=== PATIENT | female | born 1990 ===

== ENCOUNTER 2020-02-07 10:15 | Emergency (ER) | payer SELFPAY ==
[2020-02-07 11:08] VITALS: BP 97/56
--- NOTE | 2020-02-07 11:39 | Event Note ---
ED Screening Note Date of service: 02/07/20 Time: 11:38 ED Screening Note: 29-year-old female presents to the emergency room complaining of epigastric pain that radiates to her back for 3 days. Patient admits to nausea and vomiting. Denies any fever or chills. This initial assessment/diagnostic orders/clinical plan/treatment(s) is/are subject to change based on patients health status, clinical progression and re- assessment by fellow clinical providers in the ED. Further treatment and workup at subsequent clinical providers discretion. Patient/guardian urged not to elope from the ED as their condition may be serious if not clinically assessed and managed. Initial orders include:
[2020-02-07 12:10] LABS: Bacteria,Urine 3+ /HPF (Negative); Bilirubin,Urine NEG (Negative); Blood,Urine NEG (Negative); Color,Urine Yellow (Yellow); Mucus,Urine 2+ /HPF; Protein,Urine <15 mg/dL mg/dL (Negative)
[2020-02-07] MEDS ORDERED: SODIUM CHLORIDE 0.9% 1000 ML 1,000 ML IV ONE (12:51)
[2020-02-07] MEDS ORDERED: FAMOTIDINE 20 MG/2 ML INJ IV ONE (12:52)
[2020-02-07] MEDS ORDERED: ONDANSETRON 4 MG/2 ML INJ IV ONE (12:52)
[2020-02-07] MEDS ORDERED: HYDROcodone/ACETAMINOPHEN 5-325 MG TAB PO ONE (12:54)
--- NOTE | 2020-02-07 12:57 | Emergency Department Report ---
ED Abdominal Pain HPI - General Chief Complaint: Abdominal Pain Stated Complaint: STOMACH PAIN Source: patient Mode of arrival: Ambulatory Limitations: No Limitations - History of Present Illness Initial Comments: This is a 29-year-old female complaining of abdominal pain in the epigastric region radiating to her back. The pain is usually relieved with vomiting patient states that she vomited today and the pain did not go away. the symptoms have been on going for 3 days. she does have a history of gastritis she usually takes omeprazole but patient states that it is not working and now whenever she takes omeprazole she starts itching. She denies any urinary frequency or dysuria her last menstrual period was 01/31/2020. She has a at home born on 10/01/2017 she denies any other medical problems. She denies fever she denies cough chest pain or shortness of breath MD Complaint: abdominal pain -: days(s) Location: epigastric Radiation: R flank Migration to: no migration Severity: moderate Severity scale (0 -10): 6 Quality: sharp Consistency: constant Worsens With: eating Associated Symptoms: nausea, vomiting. denies: diarrhea, constipation, dysuria - Related Data LMP Date: 01/31/20 Previous Rx's Medication Instructions Recorded Last Taken Type Acetaminophen with Codeine 1 each PO Q6HR PRN #15 tablet 02/07/20 Unknown Rx [Acetaminophen-Codeine #2 TAB] Allergies Allergy/AdvReac Type Severity Reaction Status Date / Time No Known Allergies Allergy Unverified 02/07/20 10:39 ED Review of Systems ROS: Stated complaint: STOMACH PAIN Other details as noted in HPI Comment: All other systems reviewed and negative Constitutional: denies: chills, fever, malaise Eyes: denies: eye pain, eye discharge ENT: denies: ear pain, hearing loss Respiratory: no symptoms reported Cardiovascular: denies: chest pain, palpitations, dyspnea on exertion Endocrine: no symptoms reported Gastrointestinal: abdominal pain, nausea, vomiting. denies: diarrhea, constipation, hematemesis, melena Genitourinary: denies: urgency, dysuria Skin: denies: rash, lesions Neurological: denies: headache, numbness, paresthesias Psychiatric: denies: anxiety, depression, auditory hallucinations, visual hallucinations ED Past Medical Hx - Past Medical History Previous Medical History?: Yes Additional medical history: epigastic pain, Childbirth x 4 - Surgical History Past Surgical History?: No - Social History Smoking Status: Never Smoker Substance Use Type: None - Medications Home Medications: Home Medications Medication Instructions Recorded Confirmed Last Taken Type Acetaminophen with Codeine 1 each PO Q6HR PRN #15 tablet 02/07/20 Unknown Rx [Acetaminophen-Codeine #2 TAB] ED Physical Exam - General Limitations: No Limitations General appearance: alert, in no apparent distress - Head Head exam: Present: atraumatic - Eye Eye exam: Present: normal appearance. Absent: scleral icterus - ENT ENT exam: Present: normal exam - Neck Neck exam: Present: normal inspection - Respiratory Respiratory exam: Present: normal lung sounds bilaterally - Cardiovascular Cardiovascular Exam: Present: regular rate, normal heart sounds - GI/Abdominal GI/Abdominal exam: Present: soft, tenderness (And epigastric region) - Extremities Exam Extremities exam: Present: normal inspection, normal capillary refill - Back Exam Back exam: Present: normal inspection, full ROM. Absent: CVA tenderness (R), CVA tenderness (L) - Neurological Exam Neurological exam: Present: alert, oriented X3 - Psychiatric Psychiatric exam: Present: normal affect - Skin Skin exam: Present: warm, dry, intact, normal color ED Course Vital Signs 02/07/20 11:06 Temperature 98 F Pulse Rate 59 L Respiratory 20 Rate Blood Pressure 97/56 O2 Sat by Pulse 100 Oximetry - Reevaluation(s) Reevaluation #1: 02/07/20 16:20 Patient in no apparent distress awaiting CAT scan results Reevaluation #2: 02/07/20 17:20 I discussed all findings with Dr. Carl . plan is to contact GI. Patient resting in no acute distress 02/07/20 18:21 ED Medical Decision Making - Lab Data Result diagrams: 02/07/20 12:16 02/07/20 12:16 - Radiology Data Radiology results: report reviewed CT of abdomen IMPRESSION: 1. Moderately distended gallbladder with significant dilatation of the extrahepatic common bile duct and possibly mild intrahepatic biliary ductal dilatation. No cholelithiasis or definite obstructing lesion. Consider further evaluation with ultrasound and/or ERCP or MRCP. ULTRASOUND ABDOMEN, COMPLETE INDICATION / CLINICAL INFORMATION: EPIGASTRIC PAIN. COMPARISON: None available. FINDINGS: PANCREAS: No significant abnormality. ABDOMINAL AORTA: No significant abnormality. IVC: No significant abnormality. LIVER: No significant abnormality. GALLBLADDER: 2 cm echogenic gallstone in the gallbladder. No pericholecystic fluid, gallbladder wall thickening, or sonographic Garcia's sign. BILE DUCTS: No significant abnormality. Common bile duct measures 9 mm. KIDNEYS: Right: Mild prominence of the right renal pelvis. Left: Mild prominence of the left renal pelvis. SPLEEN: No significant abnormality. FREE FLUID: None. ADDITIONAL FINDINGS: None. IMPRESSION: 1. Cholelithiasis with moderate dilatation of the extrahepatic common bile duct. Consider further evaluation with ERCP or MRCP. No evidence of acute cholecystitis. 2. Mild prominence of the bilateral renal pelves. Findings likely represent bilateral extrarenal pelves.. - Medical Decision Making CT of abdomen and pelvis This is a 29-year-old Central [place]-speaking female with a 3-day complaint of epigastric pain radiating to her back. Ultrasound of her gallbladder reveals Cholelithiasis with moderate dilatation common bile duct. AST is 468 ALT is 430 ALK 422. She has a WBC that is 4.2. Negative negative urinalysis. Findings discussed both with Dr. Carl ER attending and with GI doctor on-call he recommends a MRCP IV antibiotic, INR, IV hydration . Patient states she cannot stay because she has to go home and take care of her children the youngest being 4-month old I explained everything to the patient the patient and the need for follow-up with GI and further evaluation because of her gallstones and possible blockage of her bile duct she states she cannot stay and has to go home. Patient notified that she could have worsening pain infection that could worsen to serious medical conditions and even warrant emergency surgical intervention. Dr. Carl is aware the patient is signing out AMA . my discussion discussion with patient was via the implementation director ID [id number] - Differential Diagnosis Cholelithiasis Critical Care Time: No Critical care attestation.: If time is entered above; I have spent that time in minutes in the direct care of this critically ill patient, excluding procedure time. ED Disposition Clinical Impression: Cholelithiasis Qualifiers: Cholelithiasis location: gallbladder Cholecystitis presence: without cholecystitis Biliary obstruction: without biliary obstruction Qualified Code(s): K80.20 - Calculus of gallbladder without cholecystitis without obstruction Disposition: LEFT AGAINST MED ADVICE Is pt being admited?: No Does the pt Need Aspirin: No Condition: Stable Instructions: Abdominal Pain (ED) Additional Instructions: Your condition requires further follow-up with a title curative specialist for worsening pain vomiting yellowing of your eyes please return to the emergency room immediately Prescriptions: Acetaminophen with Codeine [Acetaminophen-Codeine #2 TAB] 1 each PO Q6HR PRN #15 tablet PRN Reason: Pain Referrals: PRIMARY CAREMD [Primary Care Provider] - 3-5 Days SHERRY PENA MD [Staff Physician] - 3-5 Days Forms: AMA Form Time of Disposition: 20:04
[2020-02-07 13:06] LABS: Basophils % (Auto) 0.8 % (0.0-1.8); Eosinophils % (Auto) 0.2 % (0.0-4.3); Hematocrit 36.8 % (30.3-42.9); Hemoglobin 12.3 gm/dl (10.1-14.3); Lymphocytes # (Auto) 0.8 K/mm3 (1.2-5.4); Lymphocytes % (Auto) 19.2 % (13.4-35.0); Mean Corpuscular HGB Conc 34 % (30-34); Mean Corpuscular Volume 90 fl (79-97); Monocytes # (Auto) 0.2 K/mm3 (0.0-0.8); Monocytes % (Auto) 5.5 % (0.0-7.3); Platelet Count 284 K/mm3 (140-440); Red Blood Count 4.11 M/mm3 (3.65-5.03)
[2020-02-07 13:30] LABS: Alanine Aminotransferase 430 units/L (7-56); Albumin 4.5 g/dL (3.9-5); BUN/Creatinine Ratio 20; Blood Urea Nitrogen 8 mg/dL (7-17); Calcium 9.6 mg/dL (8.4-10.2); Hemolysis Index 2
--- NOTE | 2020-02-07 14:45 | Cat Scan Report ---
CT ABDOMEN AND PELVIS WITHOUT CONTRAST INDICATION / CLINICAL INFORMATION: MAIN. TECHNIQUE: Axial CT images were obtained through the abdomen and pelvis without IV contrast. All CT scans at [facility] location are performed using CT dose reduction for ALARA by means of automated exposure control. COMPARISON: None available. FINDINGS: LOWER CHEST: No significant abnormality. HEPATOBILIARY: No significant hepatic abnormality. Moderately distended gallbladder with dilatation o f the extrahepatic common bile duct measuring up to 1.2 cm. Possibly mild intrahepatic biliary ductal dilatation. No definite obstructing lesion. No cholelithiasis. PANCREAS/SPLEEN/ADRENALS: No significant abnormality. GENITOURINARY: Few bilateral punctate densities consistent with nonobstructive nephrolithiasis. Findi ngs measure on the order of 1-3 mm. No obstructive uropathy. Ureters and bladder demonstrate no signi ficant abnormality. GASTROINTESTINAL/MESENTERY: No evidence of acute appendicitis. No bowel obstruction or inflammation n o free air or significant free fluid. RETROPERITONEUM: No significant adenopathy. REPRODUCTIVE ORGANS: No significant abnormality. VASCULAR: No significant abnormality. BODY WALL: No significant abnormality. SKELETAL SYSTEM: No significant abnormality. IMPRESSION: 1. Moderately distended gallbladder with significant dilatation of the extrahepatic common bile duct and possibly mild intrahepatic biliary ductal dilatation. No cholelithiasis or definite obstructing l esion. Consider further evaluation with ultrasound and/or ERCP or MRCP. Signer Name: Rory Harding MD Signed: 02/07/2020 2:40 PM Workstation Name: [id number]
--- NOTE | 2020-02-07 16:56 | Ultrasound Report ---
ULTRASOUND ABDOMEN, COMPLETE INDICATION / CLINICAL INFORMATION: EPIGASTRIC PAIN. COMPARISON: None available. FINDINGS: PANCREAS: No significant abnormality. ABDOMINAL AORTA: No significant abnormality. IVC: No significant abnormality. LIVER: No significant abnormality. GALLBLADDER: 2 cm echogenic gallstone in the gallbladder. No pericholecystic fluid, gallbladder wall thickening, or sonographic Garcia's sign. BILE DUCTS: No significant abnormality. Common bile duct measures 9 mm. KIDNEYS: Right: Mild prominence of the right renal pelvis. Left: Mild prominence of the left renal p evert. SPLEEN: No significant abnormality. FREE FLUID: None. ADDITIONAL FINDINGS: None. IMPRESSION: 1. Cholelithiasis with moderate dilatation of the extrahepatic common bile duct. Consider further florence luation with ERCP or MRCP. No evidence of acute cholecystitis. 2. Mild prominence of the bilateral renal pelves. Findings likely represent bilateral extrarenal pelv es.. Signer Name: Rory Harding MD Signed: 02/07/2020 4:52 PM Workstation Name: [id number]
[2020-02-07] MEDS ORDERED: PIPERACIL/TAZOBACTA 4.5/NS 100 4.5 GM/100 ML VIAL IV ONE (17:47)
[2020-02-07] MEDS ORDERED: D5W/0.45% NACL 1,000 ML IV SCH (18:00)
[2020-02-07 18:36] LABS: INR 0.96 (0.87-1.13)
== END 2020-02-07 20:19 | disposition left against medical advice (07) ==
LOC: ED 10:15
DX: K80.20 Calculus of gallbladder without cholecystitis without obstruction (principal); Z98.890 Other specified postprocedural states; Z79.899 Other long term (current) drug therapy
CPT/HCPCS: 36415; 74176; 76700; 80053; 81001; 83690; 84702; 85025; 85610; 96361; 96365; 96375; 99284; J2405; J2543; J7030

== ENCOUNTER 2020-02-14 02:08 | Observation (INO) | payer OTHER ==
[2020-02-14 04:27] LABS: Basophils % (Auto) 0.8 % (0.0-1.8); Eosinophils % (Auto) 0.6 % (0.0-4.3); Hematocrit 38.8 % (30.3-42.9); Hemoglobin 13.3 gm/dl (10.1-14.3); Lymphocytes # (Auto) 1.5 K/mm3 (1.2-5.4); Lymphocytes % (Auto) 30.5 % (13.4-35.0); Mean Corpuscular HGB Conc 34 % (30-34); Mean Corpuscular Volume 89 fl (79-97); Monocytes # (Auto) 0.4 K/mm3 (0.0-0.8); Monocytes % (Auto) 7.8 % (0.0-7.3); Platelet Count 257 K/mm3 (140-440); Red Blood Count 4.34 M/mm3 (3.65-5.03)
[2020-02-14 04:28] LABS: Alanine Aminotransferase 401 units/L (7-56); Albumin 4.6 g/dL (3.9-5); Blood Urea Nitrogen 13 mg/dL (7-17); Calcium 10.3 mg/dL (8.4-10.2); Hemolysis Index 3
[2020-02-14 04:32] LABS: BUN/Creatinine Ratio 33
--- NOTE | 2020-02-14 05:16 | Ultrasound Report ---
LIMITED RUQ ABDOMINAL ULTRASOUND INDICATION: RUQ pain, n/v. COMPARISON: Abdominal ultrasound from 02/07/2020. FINDINGS: Pancreas: Visualized portions show no significant abnormality. Abdominal Aorta: Normal size. IVC: No significant abnormality. Liver: The liver measures 14.4 cm in length. No significant abnormality. Normal hepatopedal blood fl ow in the main portal vein. Gallbladder: No significant abnormality. Bile ducts: No significant abnormality. Common bile duct measures 2 mm. Right kidney: Not demonstrated on this exam. Free fluid: None. Additional Findings: None. IMPRESSION: 1. No acute abnormality. 2. Right kidney not demonstrated on this exam. Signer Name: Jovani Romo MD Signed: 02/14/2020 5:12 AM Workstation Name: [id number]
[2020-02-14] MEDS ORDERED: MORPHINE 4 MG/1 ML INJ IV ONE (05:51)
[2020-02-14] MEDS ORDERED: ONDANSETRON 4 MG/2 ML INJ IV ONE (05:51)
[2020-02-14] MEDS ORDERED: SODIUM CHLORIDE 0.9% 1000 ML 1,000 ML IV ONE (05:51)
--- NOTE | 2020-02-14 06:21 | Emergency Department Report ---
<HARRISCORETTA BACON - Last Filed: 02/14/20 09:28> ED Abdominal Pain HPI - General Chief Complaint: Abdominal Pain Stated Complaint: STOMACH PAIN Time Seen by Provider: 02/14/20 05:41 - Related Data Previous Rx's Medication Instructions Recorded Last Taken Type Acetaminophen with Codeine 1 each PO Q6HR PRN #15 tablet 02/07/20 Unknown Rx [Acetaminophen-Codeine #2 TAB] Allergies Allergy/AdvReac Type Severity Reaction Status Date / Time No Known Allergies Allergy Unverified 02/07/20 10:39 ED Past Medical Hx - Medications Home Medications: Home Medications Medication Instructions Recorded Confirmed Last Taken Type Acetaminophen with Codeine 1 each PO Q6HR PRN #15 tablet 02/07/20 Unknown Rx [Acetaminophen-Codeine #2 TAB] ED Medical Decision Making - Lab Data Result diagrams: 02/14/20 03:13 02/14/20 03:13 - Medical Decision Making CT of the abdomen completed still shows biliary ductal dilatation with no biliary stones. Patient's alkaline phosphatase is up to 380 ALT 401 alkaline phos 533 and total Bili 1.30. I spoke with risk assessment consultant partition setter Dr. Cecy Rocha [facility]. Dr. Finley will be on consult patient admitted with biliary obstruction hospitalist called and notified Dr. Marcelo will see patient Critical Care Time: No ED Disposition Clinical Impression: Biliary obstruction Disposition: OP ADMIT IP TO THIS HOSP Is pt being admited?: No Does the pt Need Aspirin: No Condition: Stable Time of Disposition: 09:36 <JUAN F HOLCOMB - Last Filed: 02/17/20 01:35> ED Abdominal Pain HPI - General Source: patient Mode of arrival: Ambulatory Limitations: Language Barrier - History of Present Illness Initial Comments: Dr Clark, ER attending used for grenadian interpretation Patient is a 29-year-old female presents emergency room as of epigastric and right upper quadrant abdominal pain that began last night. She has associated nausea and one episode of vomiting. She denies any diarrhea, fever, urinary symptoms, chest pain, shortness of breath. She was evaluated in the emergency department a week ago for similar symptoms and was found to have elevated LFTs at that time, there was concern for choledocholithiasis and admission was recommended with GI consultation, patient signed out AMA due to family reasons. She states that despite prescription she was given she continues to have pain. She denies any past medical history. No allergies to medications. Past abdominal surgical history . ED Review of Systems ROS: Stated complaint: STOMACH PAIN Other details as noted in HPI Comment: All other systems reviewed and negative ED Past Medical Hx - Past Medical History Previous Medical History?: Yes Additional medical history: epigastic pain. GALLSTONES - Surgical History Past Surgical History?: Yes Additional Surgical History: X 4 - Social History Smoking Status: Never Smoker Substance Use Type: None ED Physical Exam - General Limitations: No Limitations General appearance: alert, in no apparent distress - Head Head exam: Present: atraumatic, normocephalic - Eye Eye exam: Present: normal appearance - ENT ENT exam: Present: mucous membranes moist - Respiratory Respiratory exam: Present: normal lung sounds bilaterally. Absent: respiratory distress, wheezes, rales, rhonchi, stridor, chest wall tenderness, accessory muscle use, decreased breath sounds, prolonged expiratory - Cardiovascular Cardiovascular Exam: Present: regular rate, normal rhythm, normal heart sounds. Absent: systolic murmur, diastolic murmur, rubs, gallop - GI/Abdominal GI/Abdominal exam: Present: soft, tenderness (epigastric, RUQ), normal bowel sounds. Absent: distended, guarding, rebound, rigid - Neurological Exam Neurological exam: Present: alert, oriented X3 - Psychiatric Psychiatric exam: Present: normal affect, normal mood - Skin Skin exam: Present: warm, dry, intact ED Course Vital Signs 02/14/20 02/14/20 02/14/20 02:45 09:19 09:22 Temperature 97.9 F 97.7 F Pulse Rate 71 75 Respiratory 20 16 16 Rate Blood Pressure 101/60 Blood Pressure 105/41 [Right] O2 Sat by Pulse 99 99 99 Oximetry 02/14/20 12:19 Temperature 97.9 F Pulse Rate 60 Respiratory 16 Rate Blood Pressure Blood Pressure 100/55 [Right] O2 Sat by Pulse 99 Oximetry ED Medical Decision Making - Lab Data Result diagrams: 02/15/20 16:32 02/16/20 06:28 - Radiology Data Radiology results: report reviewed LIMITED RUQ ABDOMINAL ULTRASOUND INDICATION: RUQ pain, n/v. COMPARISON: Abdominal ultrasound from 02/07/2020. FINDINGS: Pancreas: Visualized portions show no significant abnormality. Abdominal Aorta: Normal size. IVC: No significant abnormality. Liver: The liver measures 14.4 cm in length. No significant abnormality. Normal hepatopedal blood flow in the main portal vein. Gallbladder: No significant abnormality. Bile ducts: No significant abnormality. Common bile duct measures 2 mm. Right kidney: Not demonstrated on this exam. Free fluid: None. Additional Findings: None. IMPRESSION: 1. No acute abnormality. 2. Right kidney not demonstrated on this exam. Signer Name: Jovani Romo MD Signed: 02/14/2020 4:12 AM Workstation Name: [id number] Ordering Physician: AGATA VICTOR Date of Service: 02/14/20 Procedure(s): CT abdomen pelvis w con Accession Number(s): [id number] cc: AGATA VICTOR CT ABDOMEN AND PELVIS WITH CONTRAST HISTORY: MAIN. Acute mid abdominal pain for the past 2 days with elevated LFTs COMPARISON: Abdominal ultrasound from today and CT abdomen from 02/07/2020 TECHNIQUE: CT images of the abdomen and pelvis were obtained following administration of intravenous contrast. All CT scans at this location are performed using CT dose reduction for ALARA by means of automated exposure control. CONTRAST: 100 ml of intravenous contrast administered. FINDINGS: Lungs/bones: Lung bases are clear. No acute osseous abnormality or significant degenerative change. Abdomen/pelvis: The gallbladder remains mildly distended and there is persistent mild intrahepatic and extrahepatic biliary duct dilatation with no obvious biliary stone disease or pancreatic head mass. There is no pancreatic ductal dilatation and the pancreas itself appears unremarkable. The liver also otherwise appears unremarkable. The spleen, adrenals, and kidneys appear unremarkable. There is a small hiatal hernia. The proximal GI tract is otherwise unremarkable. Urinary bladder and reproductive organs are unremarkable with small ovarian follicles and trace pelvic free fluid which is most likely physiologic in a woman of this age. No acute colonic abnorma lity identified. The appendix is normal. IMPRESSION: 1. Biliary ductal dilatation again noted as was described on the previous CT and once again MRCP is recommended for follow-up since no obvious stone disease or mass is identified. Signer Name: Jovani Romo MD Signed: 02/14/2020 7:57 AM Workstation Name: [id number] Transcribed By: ATILIO Dictated By: Jovani Romo MD Electronically Authenticated By: Jovani Romo MD Signed Date/Time: 02/14/20 0757 DD/ 0755 TD/TT: - Medical Decision Making Dr Clark, ER attending used for grenadian interpretation Patient is a 29-year-old female presents emergency room as of epigastric and right upper quadrant abdominal pain that began last night. She has associated nausea and one episode of vomiting. She denies any diarrhea, fever, urinary symptoms, chest pain, shortness of breath. She was evaluated in the emergency department a week ago for similar symptoms and was found to have elevated LFTs at that time, there was concern for choledocholithiasis and admission was recommended with GI consultation, patient signed out AMA due to family reasons. She states that despite prescription she was given she continues to have pain. She denies any past medical history. No allergies to medications. Past abdominal surgical history . vitals are normal. on exam: epigastric and RUQ ttp, no guarding, no rebound, no rigidity, normal bowel sounds, no peritoneal signs. Labs significant for elevated ALT, AST, alk phos, bilirubin. abdominal US: 1. No acute abnormality.2. Right kidney not demonstrated on this exam. pt signed out to coretta cleaning NP pending CT abd pelvis with IV contrast Critical care attestation.: If time is entered above; I have spent that time in minutes in the direct care of this critically ill patient, excluding procedure time.
[2020-02-14 06:50] LABS: Amorphous Crystals,Urine Few; Bacteria,Urine 4+ /HPF (Negative); Bilirubin,Urine NEG (Negative); Blood,Urine NEG (Negative); Color,Urine Yellow (Yellow); Mucus,Urine 1+ /HPF; Protein,Urine <15 mg/dL mg/dL (Negative)
--- NOTE | 2020-02-14 08:02 | Cat Scan Report ---
CT ABDOMEN AND PELVIS WITH CONTRAST HISTORY: MAIN. Acute mid abdominal pain for the past 2 days with elevated LFTs COMPARISON: Abdominal ultrasound from today and CT abdomen from 02/07/2020 TECHNIQUE: CT images of the abdomen and pelvis were obtained following administration of intravenous contrast. All CT scans at this location are performed using CT dose reduction for ALARA by means of automated exposure control. CONTRAST: 100 ml of intravenous contrast administered. FINDINGS: Lungs/bones: Lung bases are clear. No acute osseous abnormality or significant degenerative change. Abdomen/pelvis: The gallbladder remains mildly distended and there is persistent mild intrahepatic a nd extrahepatic biliary duct dilatation with no obvious biliary stone disease or pancreatic head mass . There is no pancreatic ductal dilatation and the pancreas itself appears unremarkable. The liver al so otherwise appears unremarkable. The spleen, adrenals, and kidneys appear unremarkable. There is a small hiatal hernia. The proximal G I tract is otherwise unremarkable. Urinary bladder and reproductive organs are unremarkable with small ovarian follicles and trace pelvi c free fluid which is most likely physiologic in a woman of this age. No acute colonic abnormality id entified. The appendix is normal. IMPRESSION: 1. Biliary ductal dilatation again noted as was described on the previous CT and once again MRCP is r ecommended for follow-up since no obvious stone disease or mass is identified. Signer Name: Jovani Romo MD Signed: 02/14/2020 7:57 AM Workstation Name: [id number]
[2020-02-14] MEDS ORDERED: ACETAMINOPHEN 325 MG TAB PO PRN (10:59)
--- NOTE | 2020-02-14 10:59 | History and Physical Report ---
History of Present Illness Date of examination: 02/14/20 Date of admission: 02/14/2020 Chief complaint: abd pain History of present illness: Patient 29 years old without any significant past medical history. Presents with right upper quadrant pain. Patient states pain is nonradiating in the upper right quadrant. Has been associated with nausea. Patient relates pain is worse when she eats. Is been going on for several months. Patient went to the ED 1 week ago but required to leave AMA despite suggestions to stay in the hospital. Patient at present appears calm no abdominal pain at this time. Pain is controlled with supportive care fluids and IV pain medications. Patient denied any fever chills no Covid contacts. No previous surgeries. No diarrhea no constipation. No excessive gas. Patient also denies any strong family history of liver disease. Denies any high risk contact behavior Past History Past Medical History: denies: acute [place], atrial fib, arrhythmia, COPD, dialysis, hepatitis, hypertension, hypothyroidism, migraines, pulmonary embolism, stroke Past Surgical History: No surgical history Social history: no significant social history, single, lives with family, full code Family history: no significant family history Medications and Allergies Allergies Allergy/AdvReac Type Severity Reaction Status Date / Time No Known Allergies Allergy Unverified 02/07/20 10:39 Home Medications Medication Instructions Recorded Confirmed Last Taken Type Acetaminophen with Codeine 1 each PO Q6HR PRN #15 tablet 02/07/20 Unknown Rx [Acetaminophen-Codeine #2 TAB] Review of Systems Constitutional: anorexia, fatigue, poor appetite, no weight loss, no weight gain, no fever, no chills, no sweats, no weakness, no malaise, no chronic headaches, no chronic pain Ears, nose, mouth and throat: no ear discharge, no tinnitis, no nasal congestion, no headache, no neck fullness/pressure Cardiovascular: no chest pain, no rapid/irregular heart beat, no lightheadedness, no decreased exercise tolerance Respiratory: no hemoptysis, no dyspnea on exertion, no pleurisy, no respiratory infections, no home oxygen Gastrointestinal: abdominal pain, nausea, loss of appetite, no vomiting, no diarrhea, no constipation, no change in bowel habits, no hematemesis, no coffee ground emesis, no BRBPR, no hematochezia, no early satiety, no heartburn, no indigestion, no excessive gas, no dyspepsia/bloating, no early satiety Genitourinary Female: no menorrhagia, no urinary frequency, no hematuria, no vaginal itching Musculoskeletal: no neck stiffness, no low back pain, no muscle cramps, no myalgias Integumentary: no wounds, no color changes Neurological: no vertigo, no change in mentation, no memory loss, no balance difficulties, no gait dysfunction Psychiatric: no insomnia, no depression Endocrine: no polyphagia, no flushing, no weight change, no proptosis Hematologic/Lymphatic: no easy bruising Allergic/Immunologic: no urticaria, no allergic rhinitis, no anaphylaxis, no gluten intolerance, no seasonal allergies Exam - Constitutional Vitals: Temp Pulse Resp BP Pulse Ox 97.7 F 75 16 105/41 99 02/14/20 09:22 02/14/20 09:22 02/14/20 09:22 02/14/20 09:22 02/14/20 09:22 General appearance: Present: no acute distress, well-nourished - EENT Eyes: Present: PERRL ENT: hearing intact, clear oral mucosa - Neck Neck: Present: supple, normal ROM - Respiratory Respiratory effort: normal Respiratory: bilateral: CTA - Cardiovascular Heart Sounds: Present: S1 & S2. Absent: rub, click - Extremities Extremities: pulses symmetrical, No edema Peripheral Pulses: within normal limits - Abdominal General gastrointestinal: Present: soft, non-tender, non-distended, normal bowel sounds Female genitourinary: Present: normal - Integumentary Integumentary: Present: clear, warm, dry - Musculoskeletal Musculoskeletal: gait normal, strength equal bilaterally - Psychiatric Psychiatric: appropriate mood/affect, intact judgment & insight - Neurologic Neurologic: CNII-XII intact, moves all extremities Results - Labs CBC & Chem 7: 02/14/20 03:13 02/14/20 03:13 Labs: Laboratory Last Values WBC 4.8 K/mm3 (4.5-11.0) 02/14/20 03:13 RBC 4.34 M/mm3 (3.65-5.03) 02/14/20 03:13 Hgb 13.3 gm/dl (10.1-14.3) 02/14/20 03:13 Hct 38.8 % (30.3-42.9) 02/14/20 03:13 MCV 89 fl (79-97) 02/14/20 03:13 MCH 31 pg (28-32) 02/14/20 03:13 MCHC 34 % (30-34) 02/14/20 03:13 RDW 14.0 % (13.2-15.2) 02/14/20 03:13 Plt Count 257 K/mm3 (140-440) 02/14/20 03:13 Lymph % (Auto) 30.5 % (13.4-35.0) 02/14/20 03:13 [place] % (Auto) 7.8 % (0.0-7.3) H 02/14/20 03:13 Eos % (Auto) 0.6 % (0.0-4.3) 02/14/20 03:13 Baso % (Auto) 0.8 % (0.0-1.8) 02/14/20 03:13 Lymph # (Auto) 1.5 K/mm3 (1.2-5.4) 02/14/20 03:13 [place] # (Auto) 0.4 K/mm3 (0.0-0.8) 02/14/20 03:13 Eos # (Auto) 0.0 K/mm3 (0.0-0.4) 02/14/20 03:13 Baso # (Auto) 0.0 K/mm3 (0.0-0.1) 02/14/20 03:13 Seg Neutrophils % 60.3 % (40.0-70.0) 02/14/20 03:13 Seg Neutrophils # 2.9 K/mm3 (1.8-7.7) 02/14/20 03:13 Sodium 135 mmol/L (137-145) L 02/14/20 03:13 Potassium 3.7 mmol/L (3.6-5.0) 02/14/20 03:13 Chloride 95.3 mmol/L (98-107) L 02/14/20 03:13 Carbon Dioxide 26 mmol/L (22-30) 02/14/20 03:13 Anion Gap 17 mmol/L 02/14/20 03:13 BUN 13 mg/dL (7-17) 02/14/20 03:13 Creatinine 0.4 mg/dL (0.6-1.2) L 02/14/20 03:13 Estimated GFR > 60 ml/min 02/14/20 03:13 BUN/Creatinine Ratio 33 % 02/14/20 03:13 Glucose 113 mg/dL (65-100) H 02/14/20 03:13 Calcium 10.3 mg/dL (8.4-10.2) H 02/14/20 03:13 Total Bilirubin 1.30 mg/dL (0.1-1.2) H 02/14/20 03:13 AST 380 units/L (5-40) H 02/14/20 03:13 ALT 401 units/L (7-56) H 02/14/20 03:13 Alkaline Phosphatase 533 units/L (35-129) H 02/14/20 03:13 Total Protein 8.1 g/dL (6.3-8.2) 02/14/20 03:13 Albumin 4.6 g/dL (3.9-5) 02/14/20 03:13 Albumin/Globulin Ratio 1.3 % 02/14/20 03:13 Lipase 30 units/L (13-60) 02/14/20 03:13 HCG, Qual Negative (Negative) 02/14/20 03:13 Urine Color Yellow (Yellow) 02/14/20 04:10 Urine Turbidity Clear (Clear) 02/14/20 04:10 Urine pH 7.0 (5.0-7.0) 02/14/20 04:10 Ur Specific [place] 1.020 (1.003-1.030) 02/14/20 04:10 Urine Protein <15 mg/dl mg/dL (Negative) 02/14/20 04:10 Urine Glucose (UA) Neg mg/dL (Negative) 02/14/20 04:10 Urine Ketones Neg mg/dL (Negative) 02/14/20 04:10 Urine Blood Neg (Negative) 02/14/20 04:10 Urine Nitrite Neg (Negative) 02/14/20 04:10 Urine Bilirubin Neg (Negative) 02/14/20 04:10 Urine Urobilinogen 4.0 mg/dL (<2.0) 02/14/20 04:10 Ur Leukocyte Esterase Neg (Negative) 02/14/20 04:10 Urine WBC (Auto) 3.0 /HPF (0.0-6.0) 02/14/20 04:10 Urine RBC (Auto) 4.0 /HPF (0.0-6.0) 02/14/20 04:10 U Epithel Cells (Auto) 1.0 /HPF (0-13.0) 02/14/20 04:10 Urine Bacteria (Auto) 4+ /HPF (Negative) 02/14/20 04:10 Amorphous Crystals Few 02/14/20 04:10 Urine Mucus 1+ /HPF 02/14/20 04:10 - Imaging and Cardiology CT scan - pelvis: report reviewed, image reviewed US - abdomen: report reviewed, image reviewed [place]/IV: IV Catheter Type [Left Distal INT / [place] Antecubital] Assessment and Plan Advance Directives: Yes Plan of care discussed with patient/family: Yes - Patient Problems (1) Biliary obstruction Current Visit: Yes Status: Acute Plan to address problem: CT scan showed biliary ductal dilatation without stones. Alk phos was 533 and associated elevated transaminases. Will require hepatitis work-up also ERCP for possible retained stone. GI consult Continue supportive care n.p.o. for now. IV fluid hydration pain control. (2) Cholelithiasis Current Visit: No Status: Acute Qualifiers: Cholelithiasis location: gallbladder Cholecystitis presence: without cholecystitis Biliary obstruction: without biliary obstruction Qualified Code(s): K80.20 - Calculus of gallbladder without cholecystitis without obstruction Plan to address problem: At present no evidence of stones. Will need to evaluate for retained stones ERCP versus MRI.
[2020-02-14] MEDS: ENOXAPARIN 40 MG/0.4 ML INJ SUB-Q SCH (12:46)
--- NOTE | 2020-02-14 18:22 | Gastroenterology Consultation ---
History of Present Illness - Reason for Consult Consult date: 02/14/20 Abnormal Biliary Tract Requesting physician: TASHI ASHRAF - History of Present Illness The patient is a 29 yo female admitted twice to the ER in the past 7 days for RUQ pain and abnormal LFTs. The US showed no gallstones, but a CT documented a dilated CBD to 1.2cm. She has no N/V witnessed, and denies F/C. She has no known hx of liver disease; hepatitis serologies have not been done. She has no family hx of liver disease by her report. Past History Past Medical History: No medical history Past Surgical History: No surgical history Social history: denies: smoking, alcohol abuse Family history: no significant family history Medications and Allergies Allergies Allergy/AdvReac Type Severity Reaction Status Date / Time No Known Allergies Allergy Unverified 02/07/20 10:39 Home Medications Medication Instructions Recorded Confirmed Last Taken Type Acetaminophen with Codeine 1 each PO Q6HR PRN #15 tablet 02/07/20 Unknown Rx [Acetaminophen-Codeine #2 TAB] Active Meds: Active Medications Acetaminophen (Acetaminophen 325 Mg Tab) 650 mg PO Q4H PRN PRN Reason: Pain MILD(1-3)/Fever >100.5/YOUNG Enoxaparin Sodium (Enoxaparin 40 Mg/0.4 Ml Inj) 40 mg SUB-Q QDAY DONNY Dextrose/Sodium Chloride (D5/0.45ns) 1,000 mls @ 100 mls/hr IV DIRECT DONNY Morphine Sulfate (Morphine 4 Mg/1 Ml Inj) 4 mg IV Q4H PRN PRN Reason: Pain , Severe (7-10) Ondansetron HCl (Ondansetron 4 Mg/2 Ml Inj) 4 mg IV Q8H PRN PRN Reason: Nausea And Vomiting Sodium Chloride (Sodium Chloride 0.9% 10 Ml Flush Syringe) 10 ml IV BID DONNY Sodium Chloride (Sodium Chloride 0.9% 10 Ml Flush Syringe) 10 ml IV PRN PRN PRN Reason: LINE FLUSH I HAVE REVIEWED AND RECONCILED MEDICATIONS Review of Systems - Review of Systems All systems: negative (as noted in the HPI.) Exam - Constitutional Vital Signs: Temp Pulse Resp BP Pulse Ox 97.9 F 65 18 105/57 96 02/14/20 15:37 02/14/20 15:37 02/14/20 15:37 02/14/20 15:37 02/14/20 15:37 General appearance: no acute distress - EENT Eyes: PERRL, EOM intact ENT: hearing intact, clear oral mucosa, no thrush - Neck Neck: supple - Respiratory Respiratory effort: normal Respiratory: bilateral: CTA - Cardiovascular Rhythm: regular Heart Sounds: Present: S1 & S2 Extremities: no ischemia, No edema - Gastrointestinal General gastrointestinal: Present: soft, tender (Mildly tender in RUQ), non- distended - Integumentary Integumentary: Present: clear, warm, dry - Neurologic Neurological: alert and oriented x3 - Labs CBC & Chem 7: 02/14/20 03:13 02/14/20 03:13 Lab Results: Laboratory Results - last 24 hr 02/14/20 02/14/20 02/14/20 03:13 03:13 03:13 WBC 4.8 RBC 4.34 Hgb 13.3 Hct 38.8 MCV 89 MCH 31 MCHC 34 RDW 14.0 Plt Count 257 Lymph % (Auto) 30.5 [place] % (Auto) 7.8 H Eos % (Auto) 0.6 Baso % (Auto) 0.8 Lymph # (Auto) 1.5 [place] # (Auto) 0.4 Eos # (Auto) 0.0 Baso # (Auto) 0.0 Seg Neutrophils % 60.3 Seg Neutrophils # 2.9 Sodium 135 L Potassium 3.7 Chloride 95.3 L Carbon Dioxide 26 Anion Gap 17 BUN 13 Creatinine 0.4 L Estimated GFR > 60 BUN/Creatinine Ratio 33 Glucose 113 H Calcium 10.3 H Total Bilirubin 1.30 H AST 380 H ALT 401 H Alkaline Phosphatase 533 H Total Protein 8.1 Albumin 4.6 Albumin/Globulin Ratio 1.3 Lipase 30 HCG, Qual Negative Urine Color Urine Turbidity Urine pH Ur Specific [place] Urine Protein Urine Glucose (UA) Urine Ketones Urine Blood Urine Nitrite Urine Bilirubin Urine Urobilinogen Ur Leukocyte Esterase Urine WBC (Auto) Urine RBC (Auto) U Epithel Cells (Auto) Urine Bacteria (Auto) Amorphous Crystals Urine Mucus 02/14/20 04:10 WBC RBC Hgb Hct MCV MCH MCHC RDW Plt Count Lymph % (Auto) [place] % (Auto) Eos % (Auto) Baso % (Auto) Lymph # (Auto) [place] # (Auto) Eos # (Auto) Baso # (Auto) Seg Neutrophils % Seg Neutrophils # Sodium Potassium Chloride Carbon Dioxide Anion Gap BUN Creatinine Estimated GFR BUN/Creatinine Ratio Glucose Calcium Total Bilirubin AST ALT Alkaline Phosphatase Total Protein Albumin Albumin/Globulin Ratio Lipase HCG, Qual Urine Color Yellow Urine Turbidity Clear Urine pH 7.0 Ur Specific [place] 1.020 Urine Protein <15 mg/dl Urine Glucose (UA) Neg Urine Ketones Neg Urine Blood Neg Urine Nitrite Neg Urine Bilirubin Neg Urine Urobilinogen 4.0 Ur Leukocyte Esterase Neg Urine WBC (Auto) 3.0 Urine RBC (Auto) 4.0 U Epithel Cells (Auto) 1.0 Urine Bacteria (Auto) 4+ Amorphous Crystals Few Urine Mucus 1+ Assessment and Plan - Patient Problems (1) Biliary obstruction Current Visit: Yes Status: Acute Plan to address problem: - Possible ampullary stenosis, small stone, autoimmune disease, or (unrelated) hepatitis. - Will order MRCP, and get hepatitis serologies. - ERCP possible on Sunday pending above tests. - Since no N/V, oK to let have liquids at present.
[2020-02-14] MEDS: MORPHINE 4 MG/1 ML INJ IV PRN (19:30)
[2020-02-14] MEDS: ONDANSETRON 4 MG/2 ML INJ IV PRN (19:30)
[2020-02-15] MEDS: D5W/0.45% NACL 1,000 ML IV SCH ×2 (05:38→16:27)
[2020-02-15] MEDS: ENOXAPARIN 40 MG/0.4 ML INJ SUB-Q SCH (10:27)
[2020-02-15] MEDS: MORPHINE 4 MG/1 ML INJ IV PRN ×2 (10:34→22:07)
[2020-02-15] MEDS: ONDANSETRON 4 MG/2 ML INJ IV PRN ×2 (10:37→22:07)
--- NOTE | 2020-02-15 13:15 | Progress Note ---
Assessment and Plan - Patient Problems (1) Biliary obstruction Current Visit: Yes Status: Acute Plan to address problem: CT scan showed biliary ductal dilatation without stones. Alk phos was 533 and associated elevated transaminases. Will require hepatitis work-up also ERCP for possible retained stone. GI consult Continue supportive care n.p.o. for now. IV fluid hydration pain control. Pending MRI. (2) Cholelithiasis Current Visit: No Status: Acute Qualifiers: Cholelithiasis location: gallbladder Cholecystitis presence: without cholecystitis Biliary obstruction: without biliary obstruction Qualified Code(s): K80.20 - Calculus of gallbladder without cholecystitis without obstruction Subjective Date of service: 02/14/20 Principal diagnosis: Abdominal pain Interval history: Patient today states she only has pain when she attempts to eat. Objective - Constitutional Vitals: Vital Signs - 12hr 02/15/20 02/15/20 02/15/20 04:49 07:35 11:41 Temperature 97.7 F 98.3 F 97.3 F L Pulse Rate 62 77 63 Respiratory 16 18 13 Rate Blood Pressure 100/54 103/55 99/48 O2 Sat by Pulse 98 98 99 Oximetry General appearance: Present: no acute distress, well-nourished - EENT Eyes: PERRL, EOM intact ENT: hearing intact, clear oral mucosa Ears: bilateral: normal - Neck Neck: supple, normal ROM - Respiratory Respiratory effort: normal Respiratory: bilateral: CTA - Breasts Breasts: normal - Cardiovascular Rhythm: regular Heart Sounds: Present: S1 & S2. Absent: gallop, rub Extremities: pulses intact, No edema, normal color, Full ROM - Gastrointestinal General gastrointestinal: Present: soft, non-tender, non-distended, normal bowel sounds - Genitourinary Female genitourinary: normal - Integumentary Integumentary: clear, warm, dry - Musculoskeletal Musculoskeletal: 1, strength equal bilaterally - Neurologic Neurologic: moves all extremities - Psychiatric Psychiatric: memory intact, appropriate mood/affect, intact judgment & insight - Labs CBC & Chem 7: 02/14/20 03:13 02/14/20 03:13
--- NOTE | 2020-02-15 13:17 | Progress Note ---
Assessment and Plan - Patient Problems (1) Biliary obstruction Current Visit: Yes Status: Acute Plan to address problem: CT scan showed biliary ductal dilatation without stones. Alk phos was 533 and associated elevated transaminases. Will require hepatitis work-up also ERCP for possible retained stone. GI consult Continue supportive care n.p.o. for now. IV fluid hydration pain control. Scheduled to have MRI today at 5 PM. Otitis panel pending. (2) Cholelithiasis Current Visit: No Status: Acute Qualifiers: Cholelithiasis location: gallbladder Cholecystitis presence: without cholecystitis Biliary obstruction: without biliary obstruction Qualified Code(s): K80.20 - Calculus of gallbladder without cholecystitis without obstruction Plan to address problem: At present no evidence of stones. Will need to evaluate for retained stones ERCP versus MRI. Subjective Date of service: 02/15/20 Principal diagnosis: Abdominal pain Interval history: Patient today states she has pain with attempts to eat clear liquid diet as well as water today. Will discontinue full liquids. Patient has MRI and hepatitis panel scheduled for today at 5 PM. Currently hemodynamically stable no pain if patient does not eat. Therefore will continue n.p.o. status. No fever chills no nausea vomiting. Patient having bowel movement and gas. Objective - Constitutional Vitals: Vital Signs - 12hr 02/15/20 02/15/20 02/15/20 04:49 07:35 11:41 Temperature 97.7 F 98.3 F 97.3 F L Pulse Rate 62 77 63 Respiratory 16 18 13 Rate Blood Pressure 100/54 103/55 99/48 O2 Sat by Pulse 98 98 99 Oximetry General appearance: Present: no acute distress, well-nourished - EENT Eyes: PERRL, EOM intact ENT: hearing intact, clear oral mucosa Ears: bilateral: normal - Neck Neck: supple, normal ROM - Respiratory Respiratory effort: normal Respiratory: bilateral: CTA - Breasts Breasts: normal - Cardiovascular Rhythm: regular Heart Sounds: Present: S1 & S2. Absent: gallop, rub Extremities: pulses intact, No edema, normal color, Full ROM - Gastrointestinal General gastrointestinal: Present: soft, non-tender, non-distended, normal bowel sounds - Genitourinary Female genitourinary: normal - Integumentary Integumentary: clear, warm, dry - Musculoskeletal Musculoskeletal: 1, strength equal bilaterally - Neurologic Neurologic: moves all extremities - Psychiatric Psychiatric: memory intact, appropriate mood/affect, intact judgment & insight - Labs CBC & Chem 7: 02/14/20 03:13 02/14/20 03:13
[2020-02-15 17:02] LABS: Basophils % (Auto) 0.8 % (0.0-1.8); Eosinophils % (Auto) 0.8 % (0.0-4.3); Hematocrit 37.2 % (30.3-42.9); Hemoglobin 12.6 gm/dl (10.1-14.3); Lymphocytes # (Auto) 1.4 K/mm3 (1.2-5.4); Mean Corpuscular HGB Conc 34 % (30-34); Mean Corpuscular Volume 90 fl (79-97); Monocytes # (Auto) 0.3 K/mm3 (0.0-0.8); Monocytes % (Auto) 8.1 % (0.0-7.3); Platelet Count 201 K/mm3 (140-440); Red Blood Count 4.13 M/mm3 (3.65-5.03); Red Cell Distribution Width 13.8 % (13.2-15.2)
[2020-02-15 17:23] LABS: Alanine Aminotransferase 350 units/L (7-56); Blood Urea Nitrogen 3 mg/dL (7-17); Calcium 9.1 mg/dL (8.4-10.2); Hemolysis Index 11
[2020-02-15 17:28] LABS: BUN/Creatinine Ratio 8
--- NOTE | 2020-02-15 17:44 | Gastroenterology Progress Note ---
Assessment and Plan - Patient Problems (1) Biliary obstruction Current Visit: Yes Status: Acute Plan to address problem: - Possible ampullary stenosis, small stone, autoimmune disease, or (unrelated) hepatitis. - Will order ERCP and get hepatitis serologies. - No need for abx since afebrile and normal WBC. Subjective Date of service: 02/15/20 Principal diagnosis: Abnl LFTs Interval history: The patient is improved today with less RUQ pain, and no N/V with liquids. Objective - Constitutional Vitals: Temp Pulse Resp BP Pulse Ox 98.0 F 67 18 99/59 96 02/15/20 15:21 02/15/20 16:00 02/15/20 15:21 02/15/20 16:00 02/15/20 15:21 General appearance: no acute distress - Respiratory Respiratory effort: normal Respiratory: bilateral: CTA - Cardiovascular Rhythm: regular Heart Sounds: Present: S1 & S2 - Gastrointestinal General gastrointestinal: Present: soft, non-tender, non-distended - Labs CBC & Chem 7: 02/15/20 16:32 02/15/20 16:32 Labs: Laboratory Results - last 24 hr 02/15/20 02/15/20 16:32 16:32 WBC 3.9 L RBC 4.13 Hgb 12.6 Hct 37.2 MCV 90 MCH 30 MCHC 34 RDW 13.8 Plt Count 201 Lymph % (Auto) 36.0 H [place] % (Auto) 8.1 H Eos % (Auto) 0.8 Baso % (Auto) 0.8 Lymph # (Auto) 1.4 [place] # (Auto) 0.3 Eos # (Auto) 0.0 Baso # (Auto) 0.0 Seg Neutrophils % 54.3 Seg Neutrophils # 2.1 Sodium 137 Potassium 3.7 Chloride 102.7 Carbon Dioxide 25 Anion Gap 13 BUN 3 L Creatinine 0.4 L Estimated GFR > 60 BUN/Creatinine Ratio 8 Glucose 91 Calcium 9.1 Total Bilirubin 1.20 AST 140 H ALT 350 H Alkaline Phosphatase 388 H Total Protein 6.9 Albumin 4.0 Albumin/Globulin Ratio 1.4
[2020-02-15 17:48] LABS: Hepatitis B Surface Antigen Non-Reactive (Negative); Hepatitis C Virus Antibody Non-Reactive (NonReactive)
--- NOTE | 2020-02-15 19:19 | Magnetic Resonance Report ---
MRCP INDICATION: Biliary dilatation seen on recent CT imaging TECHNIQUE: Axial and coronal imaging is performed using several imaging sequences. Radial MRCP images were obtained. No contrast is administered. FINDINGS: The common bile duct is normal in diameter and measures up to 5 to 6 mm. No filling defects are seen within the common duct. There is some mild dilatation of the proximal left intrahepatic ryan e duct. No filling defect is seen. There appears to be a stricture at the confluence of the right and left hepatic ducts with a slightly beaded appearance of the central aspect of the left hepatic duct. The dilatation of the common bile duct noted on the CT scan performed on 02/14/2020 has improved in the interval. Pancreatic duct is normal in diameter. No focal pancreatic lesions are seen. No mass lesions are seen. IMPRESSION: Dilatation of the common bile duct seen on CT scan performed on 02/14/2020 has improved in the interv al. On today's study the common bile duct measures 5 to 6 mm. There does appear to be a mild stricture of the common bile ducts at the confluence of the right and left hepatic ducts with slightly beaded appearance of the central aspect of the left hepatic duct. Th is appearance raises concern for cholangitis including primary sclerosing cholangitis but is not defi nitive. No filling defects are seen within the common duct. The pancreatic duct is normal in diameter . Signer Name: Dilip Sharma MD Signed: 02/15/2020 7:14 PM Workstation Name: [id number]
[2020-02-16 07:09] LABS: Alanine Aminotransferase 260 units/L (7-56); Albumin 3.8 g/dL (3.9-5); Blood Urea Nitrogen 5 mg/dL (7-17); Calcium 8.8 mg/dL (8.4-10.2); Hemolysis Index 23
[2020-02-16 07:21] LABS: BUN/Creatinine Ratio 13
[2020-02-16] MEDS: D5W/0.45% NACL 1,000 ML IV SCH (07:37)
[2020-02-16] MEDS ORDERED: SODIUM CHLORIDE 0.9% 100 ML ONE (09:54)
[2020-02-16] MEDS ORDERED: SODIUM CHLORIDE 0.9% 1000 ML 1,000 ML IV SCH (10:00)
[2020-02-16] MEDS: ENOXAPARIN 40 MG/0.4 ML INJ SUB-Q SCH (10:32)
--- NOTE | 2020-02-16 11:04 | Anesthesia Consultation ---
Anesthesia Consult and Med Hx Date of service: 02/16/20 - Airway Anesthetic Teeth Evaluation: Poor ROM Head & Neck: Adequate Mental/Hyoid Distance: Adequate Mallampati Class: Class II Intubation Access Assessment: Probably Good - Pulmonary Exam CTA: Yes - Cardiac Exam Cardiac Exam: RRR - Pre-Operative Health Status ASA Pre-Surgery Classification: ASA2 Proposed Anesthetic Plan: MAC - Pulmonary Hx Respiratory Symptoms: No - Cardiovascular System Hx Hypertension: No - Central Nervous System CVA: No - Endocrine Hx Renal Disease: No Hx Liver Disease: Yes (elevated LFTs) Hx Insulin Dependent Diabetes: No Hx Non-Insulin Dependent Diabetes: No Hx Thyroid Disease: No - Other Systems Hx Obesity: No - Additional Comments Anesthesia Medical History Comments: No hx anesthetic complications.
--- NOTE | 2020-02-16 11:04 | Anesthesia Day of Surgery ---
Anesthesia Day of Surgery - Day of Surgery Patient Examined: Yes Patient H&P Reviewed: Yes Patient is NPO: Yes
[2020-02-16] MEDS ORDERED: MIDAZOLAM 2 MG/2 ML INJ ONE (11:19)
[2020-02-16] MEDS ORDERED: LIDOCAINE MPF (2%) 20 MG/1 ML VIAL 5 ML ONE (11:20)
[2020-02-16] MEDS ORDERED: KETAMINE/STERILE WATER 50 MG/ML SYRINGE ONE (11:20)
[2020-02-16] MEDS ORDERED: propofoL 200 MG/20 ML VIAL IV ONE ×2 (11:20→11:39)
--- NOTE | 2020-02-16 11:59 | Post Operative Note ---
Pre-op diagnosis: Abnormal MRI Post-op diagnosis: other (Ampullary stenosis) Findings: 1. Normal ampulla mucosa, but stenotic sphincter. 2. PD not cannulated/injected 3. CBD cannulated with Fusion sphinctertome/0.035 guidewire - Minimal dilation (7mm) - Possible distal filling defects (<3mm) - Medium sphincterotomy performed - 9mm balloon swept twice through CBD with removal of air bubbles - Occlusion cholangiogram showed normal intra/extrahepatic ducts; does not look like PSC (contrary to MRCP) 4. Filling of gallbladder incidentally noted Procedure: ERCP with biliary sphincterotomy and balloon sweep of CBD Anesthesia: MAC Surgeon: FLAVIO CASAS Estimated blood loss: minimal Pathology: none Specimen disposition: other (N/A) Condition: stable Disposition: floor (Recs: 1. OK to advance to regular diet. 2. If LFTs improved tomorrow, may d/c home. 3. Avoid NSAIDs x 3 days. 4. No need for abx at discharge since no cholangitis/purulent material in CBD.)
--- NOTE | 2020-02-16 12:38 | Operative Report ---
PROCEDURE PERFORMED: Endoscopic retrograde cholangiopancreatography with biliary sphincterotomy and balloon sweeping of the common bile duct. PREOPERATIVE DIAGNOSIS: Abnormal MRCP with abnormal liver enzymes. POSTOPERATIVE DIAGNOSIS: Ampullary stenosis. ENDOSCOPIST: Sea Rocha MD INSTRUMENT: [employer] video endoscope. MEDICATIONS: MAC anesthesia by anesthesia service. COMPLICATIONS: No apparent complications. ESTIMATED BLOOD LOSS: Minimal. SPECIMENS: None. IMPLANTS: None. ASSISTANTS: None. CONDITION AT COMPLETION: Stable. TECHNIQUE: The patient was informed of the risks and benefits of the procedure through a correctional case manager. She was placed in the prone position. The above sedative medications were given. Her vital signs remained stable throughout the procedure. The instrument was advanced from the mouth to the second portion of the duodenum under direct visualization. At that point, the bowel was insufflated and the endoscope was slowly withdrawn to the level of the ampulla. The ampulla had normal-appearing mucosa, but cannulation was slightly difficult due to a stenotic sphincter. The common bile duct was cannulated using a fusion sphincterotome and a 0.035 guidewire. A cholangiogram showed minimal dilation to 7 mm with 3 possible distal filling defects, less than 3 mm. A medium-sized sphincterotomy was performed and a 9 mm balloon was swept twice through the common bile duct with removal of only air bubbles and no lesions noted on the cholangiogram consistent with gallstones. An occlusion cholangiogram showed normal intra and extrahepatic ducts with no evidence of primary sclerosing cholangitis. The procedure was then terminated. FINDINGS: 1. Normal-appearing mucosa at the ampulla, but a stenotic sphincter was noted. 2. Pancreatic duct was not cannulated or injected. 3. The common bile duct was cannulated using a fusion sphincterotome and a 0.035 guidewire. A. Minimal dilation to 7 mm was noted with possible distal filling defects, less than 3 mm. B. Medium-sized sphincterotomy was performed. C. A 9 mm balloon was swept twice through the common bile duct with removal of air bubbles. D. Occlusion cholangiogram showed normal intra and extrahepatic ducts that did not appear consistent with primary sclerosing cholangitis, contrary to the MRCP report. 4. Filling of the gallbladder was incidentally noted. RECOMMENDATIONS: 1. Okay to advance to a regular diet. 2. If the liver enzymes are improved tomorrow, may discharge the patient home. 3. Avoid nonsteroidal anti-inflammatory drugs for the next 3 days. 4. No need for antibiotics at discharge since no evidence of cholangitis or purulent material in the common bile duct and the patient has no fever nor does she have an elevated white count. JOB# [id number] BRUNA/NTS
--- NOTE | 2020-02-16 13:08 | Fluoroscopy Report ---
FLUOROSCOPY ERCP BILIARY DUCT HISTORY: Dilated common bile duct on MRCP COMPARISON: MRCP dated 02/15/2020. IMPRESSION: 59 seconds of fluoroscopy time was provided by radiology during ERCP by Dr. Rocha of [facility]. 12 fluoroscopic images of the right upper quadrant are presented. The images demonstrate a normal-appearing biliary tree. There is no evidence for abnormal dilatation, stricture or filling defect on ERCP. There is normal filling of the gallbladder. The pancreatic duct was not injected. Ple ase correlate with the procedural report by gastroenterology as needed. Signer Name: Leonardo Fishman Jr, MD Signed: 02/16/2020 1:03 PM Workstation Name: [id number]
--- NOTE | 2020-02-16 13:56 | Post Anesthesia Evaluation ---
- Post Anesthesia Evaluation Patient Participated: Yes Airway Patent: Yes Stable Respiratory Function: Yes Nausea/Vomiting: No Temp > 96.8F: Yes Pain Manageable: Yes Adequeate Hydration: Yes Anesthesia Complications: No
--- NOTE | 2020-02-16 15:33 | Progress Note ---
Assessment and Plan - Patient Problems (1) Biliary obstruction Current Visit: Yes Status: Acute Plan to address problem: Abnormal MRI initially had ampulla stenosis. Initial MRI showed possible cholangitis. After ERCP with biliary sphincterotomy with common bile duct sweep. Found no evidence of cholangitis. Patient improved. If LFTs are better in the a.m. may be discharged. (2) Cholelithiasis Current Visit: No Status: Acute Qualifiers: Cholelithiasis location: gallbladder Cholecystitis presence: without cholecystitis Biliary obstruction: without biliary obstruction Qualified Code(s): K80.20 - Calculus of gallbladder without cholecystitis without obstruction Plan to address problem: At present no evidence of stones. Will need to evaluate for retained stones ERCP versus MRI. Subjective Date of service: 02/16/20 Principal diagnosis: Abnl LFTs Interval history: Patient today continues to improve. Patient abdominal pain much better. Patient scheduled for ERCP today. Objective - Constitutional Vitals: Vital Signs - 12hr 02/16/20 02/16/20 02/16/20 04:58 10:25 11:54 Temperature 98.2 F 98.3 F 97.6 F Pulse Rate 61 74 85 Respiratory 16 11 L 14 Rate Blood Pressure 98/52 114/51 104/63 O2 Sat by Pulse 100 99 100 Oximetry 02/16/20 02/16/20 12:15 12:29 Temperature Pulse Rate 80 75 Respiratory 22 18 Rate Blood Pressure 105/63 107/65 O2 Sat by Pulse 100 100 Oximetry General appearance: Present: no acute distress, well-nourished - EENT Eyes: PERRL, EOM intact ENT: hearing intact, clear oral mucosa Ears: bilateral: normal - Neck Neck: supple, normal ROM - Respiratory Respiratory effort: normal Respiratory: bilateral: CTA - Breasts Breasts: normal - Cardiovascular Rhythm: regular Heart Sounds: Present: S1 & S2. Absent: gallop, rub Extremities: pulses intact, No edema, normal color, Full ROM - Gastrointestinal General gastrointestinal: Present: soft, non-tender, non-distended, normal bowel sounds - Genitourinary Female genitourinary: normal - Integumentary Integumentary: clear, warm, dry - Musculoskeletal Musculoskeletal: 1, strength equal bilaterally - Neurologic Neurologic: moves all extremities - Psychiatric Psychiatric: memory intact, appropriate mood/affect, intact judgment & insight - Labs CBC & Chem 7: 02/15/20 16:32 12/21/20 06:28 Labs: Abnormal lab results 02/15/20 02/15/20 02/16/20 Range/Units 16:32 16:32 06:28 WBC 3.9 L (4.5-11.0) K/mm3 Lymph % (Auto) 36.0 H (13.4-35.0) % [place] % (Auto) 8.1 H (0.0-7.3) % BUN 3 L 5 L (7-17) mg/dL Creatinine 0.4 L 0.4 L (0.6-1.2) mg/dL AST 140 H 75 H (5-40) units/L ALT 350 H 260 H (7-56) units/L Alkaline Phosphatase 388 H 341 H (35-129) units/L Albumin 3.8 L (3.9-5) g/dL
[2020-02-17 06:34] LABS: Alanine Aminotransferase 187 units/L (7-56); Albumin 3.9 g/dL (3.9-5); Blood Urea Nitrogen 6 mg/dL (7-17); Calcium 8.9 mg/dL (8.4-10.2); Hemolysis Index 8
[2020-02-17 06:35] LABS: BUN/Creatinine Ratio 15
[2020-02-17 08:28] VITALS: BP 103/54
[2020-02-17] MEDS ORDERED: POTASSIUM CHLORIDE ER 10 MEQ TAB PO NR (08:30)
[2020-02-17] MEDS: ENOXAPARIN 40 MG/0.4 ML INJ SUB-Q SCH (09:14)
--- NOTE | 2020-02-17 09:43 | Discharge Summary ---
Providers - Providers Date of Admission: 02/14/20 11:39 Date of discharge: 02/17/20 Attending physician: FORREST HAUSER MD Primary care physician: MANAGER KNOWLEDGE Hospitalization Reason for admission: Abdominal pain Condition: Stable Hospital course: Patient 29 years old without any significant past medical history. Presents with right upper quadrant pain. Patient states pain is nonradiating in the upper right quadrant. Has been associated with nausea. Patient relates pain is worse when she eats. Is been going on for several months. Patient went to the ED 1 week ago but required to leave AMA despite suggestions to stay in the hospital. Patient at present appears calm no abdominal pain at this time. Pain is controlled with supportive care fluids and IV pain medications. Patient denied any fever chills no Covid contacts. No previous surgeries. No diarrhea no constipation. No excessive gas. Patient also denies any strong family history of liver disease. Denies any high risk contact behavior. (1) Biliary obstruction Current Visit: Yes Status: Acute Plan to address problem: Abnormal MRI initially had ampulla stenosis. Initial MRI showed possible cholangitis. After ERCP with biliary sphincterotomy with common bile duct sw eep. Found no evidence of cholangitis. Patient improved. If LFTs are better in the a.m. may be discharged. (2) Cholelithiasis Current Visit: No Status: Acute Qualifiers: Cholelithiasis location: gallbladder Cholecystitis presence: without cholecystitis Biliary obstruction: without biliary obstruction Qualified Code(s): K80.20 - Calculus of gallbladder without cholecystitis without obstruction Plan to address problem: ERCP was done, no stones, no cholangitis. Patient's abdominal pain is getting better. LFTs are improved and discharged home. Disposition: AK-01 TO HOME OR SELFCARE Time spent for discharge: 32 minutes - Discharge Diagnoses (1) Biliary obstruction Status: Ruled-out (2) Cholelithiasis Status: Ruled-out Qualifiers: Cholelithiasis location: gallbladder Cholecystitis presence: without cholecystitis Biliary obstruction: without biliary obstruction Qualified Code(s): K80.20 - Calculus of gallbladder without cholecystitis without obstruction Core Measure Documentation - Palliative Care Palliative Care/ Comfort Measures: Not Applicable - Core Measures Any of the following diagnoses?: none Exam - Physical Exam Narrative exam: Not in cardiopulmonary distress. The patient appeared well nourished and normally developed. Vital signs as documented. Head exam is unremarkable. No scleral icterus . Neck is without jugular venous distension, thyromegaly, or carotid bruits. Lungs are clear to auscultation. Cardiac exam reveals regular rate and Rhythm. Abdominal exam reveals normal bowel sounds, nontender, no organomegaly. Extremities are nonedematous and both femoral and pedal pulses are normal. 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 No focal weakness. - Constitutional Vitals: Temp Pulse Resp BP Pulse Ox 98.2 F 67 18 103/54 97 02/17/20 08:21 02/17/20 08:21 02/17/20 08:21 02/17/20 08:21 02/17/20 08:21 Plan Activity: no restrictions Weight Bearing Status: Full Weight Bearing Diet: advance as tolerated Additional Instructions: Please avoid taking NSAIDs Follow up with: PRIMARY CARE, [Primary Care Provider] - 3-5 Days Prescriptions: oxyCODONE [roxiCODONE] 5 mg PO Q6HR PRN #10 tablet PRN Reason: Pain
== END 2020-02-17 11:25 | disposition home or self-care (01) ==
LOC: ED 02:08 → 3B 11:39
PROVIDERS: ADMIT Internal Medicine; ATTEND Internal Medicine
DX: K80.51 Calculus of bile duct without cholangitis or cholecystitis with obstruction (principal); Z98.891 History of uterine scar from previous surgery; Z79.899 Other long term (current) drug therapy
CPT/HCPCS: 36415; 43262; 74177; 74181; 74328; 76705; 80053; 80074; 81001; 83690; 84703; 85025; 96361; 96372; 96374; 96375; 96376; 99285; G0378; J1650; J2250; J2270; J2405; J2704; J3490; J7030; Q9967